=== PATIENT | male | born 1950 | race Caucasian/White ===

== ENCOUNTER 2024-05-17 17:42 | Inpatient (IN) | payer MEDICARE, SELFPAY ==
[2024-05-17] VITALS (25 sets, daily range): BP systolic 61–162; BP diastolic 41–88; PULSE 82–112; RESP 12–27; TEMP 35.8–36.6; O2SAT 91–99; BMI 29.8; BMI 33.5
--- NOTE | 2024-05-17 | IR_ITS ---
APPROVED REPORT Patient Location: [facility] Sales Representative: Yosi Oliva, RT (R) PROCEDURES Left heart catheterization Left ventriculogram Selective coronary angiogram Drug-eluting stent deployment to the proximal circumflex artery Drug-eluting stent deployment to the mid LAD Attempted angioplasty of a chronically occluded right coronary INDICATION Cardiogenic shock, Sudden cardiac , Anterior ST elevation myocardial infarction Informed consent was obtained prior to the procedure. COMPLICATIONS NONE Estimated Blood Loss: LESS THAN 10 ML TECHNIQUE One percent lidocaine was used to anesthetize the right groin. The right femoral artery was accessed via the Seldinger technique. A 6-Slovenian sheath was placed in the right femoral artery. A 6 Slovenian JL 4 guide catheter was used to perform left coronary artery angiography. Therapeutic heparin was administered giving a therapeutic ACT and a Choice PT extra-support wire was placed into the circumflex artery followed by a 3 mm x 22 mm Warren frontier stent deployed at 18 dhiraj reducing the critical stenosis to 0%. SOLANGE-3 flow was present before and after the procedure. An additional Choice PT extra-support wire was attempted to open would look like an occluded first obtuse marginal artery however this appeared to be a chronic occlusion. The Choice PT was placed down to the mid LAD and a 3 mm x 15 mm Stamps frontier stent was deployed at 20 dhiraj in the mid LAD reducing the severe stenosis to 0%. 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 Eventually the multipurpose catheter was placed into the right coronary artery followed by Choice PT extra-support wire. The lesion appeared to be chronically occluded. A 2 mm x 15 mm compliant balloon was advanced which would not allow passage of the wire or the balloon. At this point it was decided this was a chronic occlusion given it was collateralized through a rich collateral system through the LAD system. The catheter was used to perform left heart catheterization and left ventriculogram. At the end of the procedure the femoral sheath was sewn into place patient was transferred to the postop putting in stable condition ANGIOGRAPHIC RESULTS The left main artery Normal The left anterior descending artery Proximal 10 to 20% stenosis with a mid vessel 70% stenosis The circumflex artery Large nondominant and appears as though the first obtuse marginal artery is chronically occluded. Distal to the first obtuse marginal artery there is a concentric greater than 90% stenosis which supplies 2 large distal obtuse marginal arteries The right coronary artery Proximally occluded and fills distally via the septal perforators The LUKE ventriculogram reveals Dilated ventricle anterior wall hypokinesis inferior wall severe hypokinesis estimate ejection fraction 35% The left ventricular end-diastolic pressure 20 to 25 mmHg IMPRESSION Sudden cardiac followed by cardiogenic shock status post cardiopulmonary arrest presenting to the Loader Technician Successful stenting of a critically diseased large proximal to mid circumflex artery critical disease reduced to 0% with 1 drug-eluting stent Successful stenting of a severely diseased mid LAD which supplied collaterals to a chronically occluded right coronary severe disease reduced to 0% with 1 drug-eluting stent Attempted angioplasty of a chronically occluded right coronary artery Reduced ejection fraction with regional wall motion abnormality Hypokalemia potassium 2.3 PLAN 1. Plavix 600 mg per rectum followed by 75 mg per NG tube daily 2. Place NG tube 3. Supportive care 4. Torch Operator consultation 5. Continue on heparin drip as long as right femoral sheath remains in place. We will use the femoral sheath for continuous arterial pressure and for periodic blood gases 6. Once patient is more hemodynamically stable and off the epinephrine drip we will place Perclose device and remove the femoral sheath 7. Replete potassium. Patient experienced sudden cardiac in the setting of hypokalemia. 8. Official echocardiogram Sunday 9. Unless patient awakens and starts moving around I would prefer not to use sedation and see if he is neurologically intact. 10. Wean epinephrine drip to keep map above 75 11. Pharmacy to adjust heparin drip 12. Check INR 13. Obtain home medications Electronically signed by : Surjit Gomez MD 05/17/2024 19:45:39
--- NOTE | 2024-05-17 18:00 | ECG_ITS ---
APPROVED REPORT Exam: Resting ECG HR:79 bpm ECG Measurements Heart Rate 79 AXES QRSd 92 QRS 125 QT 412 T -41 QTc 447 Conclusion ATRIAL FIBRILLATION MARKED ST DEPRESSION, CONSIDER SUBENDOCARDIAL INJURY [0.2+ mV ST DEPRESSION] Shark fin in the septal leads, ST depression in multiple leads with upright T wave. QTc 447. Electronically signed by : EBONY MEDLEY, 05/17/2024 23:40:16
--- NOTE | 2024-05-17 18:30 | PC.NURSE ---
pt to micro lab analyst with stephany mcclure and dean andrews
--- NOTE | 2024-05-17 18:31 | ED_ITS ---
Discharge Plan Referrals Follow up/Referrals: Provider,Referral, [Primary Care Provider] - See instructions Clinical Impressions Clinical Impression: Cardiac arrest with ventricular fibrillation Print Language Print Language: Haitian Discharge ED Provider: Srinath Alaniz General Adult HPI General Stated complaint: CARDIAC ARRREST Time Seen by Provider: 05/17/24 17:42 History of Present Illness HPI narrative: Patient is a 73-year-old male with largely unknown past medical history presents emergency department in cardiac arrest. History is largely obtained by EMS. Patient was standing his front door when he collapsed, he had no complaints prior to collapsing. Immediate bystander CPR. Fingerstick in the field nonactionable. Definitive airway placed in the field. IV access placed in the field. Prior to arrival patient had 5 shocks for V-fib arrest, 300 mg of amiodarone, and amp of bicarb, 6 mg of epinephrine. ROSC was obtained in the ambulance bay prior to coming in with José in place with compressions paused. Related Data Allergies Allergy/AdvReac Type Severity Reaction Status Date / Time Unable to Assess Allergy Verified 05/17/24 18:27 [facility] Disclaimer: The information contained in this section may have been updated after the patient was seen, as this information can be updated by other users. Social History Smoking Status: Current every day smoker alcohol intake: former year quit: Unkn current occupational status: other Travel in the last 8 weeks: None ROS Obtained: Yes unobtainable due to mental status Physical Exam General General appearance: other (Coding in extremis) Head Head exam: atraumatic and normocephalic ENT ENT exam: Present mucous membranes moist Neck Neck exam: Present normal inspection Chest Chest inspection: Present symmetric chest wall rise and other (José in place) Respiratory Respiratory exam: Present other (Bilateral breath sounds bag present) Cardiovascular Cardiovascular exam: Present other (No palpable pulse) Abdominal Exam Abdominal exam: Present soft Extremities Exam Extremities exam: Present normal inspection Neurological Exam Neurological exam: Present other (GCS 3 T) Medical Decision Making Medical Records Screening: Per USPSTF and CDC recommendations, given the prevalence of disease in our region, it is our hospital?s policy to screen for HIV and viral Hepatitis for all patients aged 18 and over and those with ongoing risk factors. Star Inquiry Pt receiving controlled substance: No Orders (Tests/Meds): ED MEDICATIONS Generic Name Dose Route Start Last Admin Trade Name Freq PRN Reason Stop Dose Admin Diphenhydramine HCl 50 mg 05/17/24 18:27 Diphenhydramine 50mg/Ml Vial IV 05/17/24 18:28 ONCE ONE Fentanyl Citrate 50 mcg 05/17/24 18:27 Fentanyl 100mcg/2ml Vial IV 05/18/24 06:27 Q3MINP PRN Sedation Fentanyl Citrate 25 mcg 05/17/24 18:27 Fentanyl 100mcg/2ml Vial IV 05/18/24 06:27 Q3MINP PRN Sedation Flumazenil 0.2 mg 05/17/24 18:27 Flumazenil 0.1mg/Ml 5ml Vial IV 05/18/24 06:27 NEEDED PRN Sedation Heparin Sodium (Porcine) 10,000 unit 05/17/24 18:27 Heparin 1,000 Units/Ml 10ml Vial (Adjunct Trainer) IV 05/17/24 22:27 NEEDED PRN Emergency Box Carbon Blocks Press Operator Heparin Sodium/Sodium Chloride 3,000 unit 05/17/24 18:27 Heparin 1,000 Units/500ml Ns (Adjunct Trainer) IV 05/17/24 18:28 ONCE ONE Hydralazine HCl 20 mg 05/17/24 18:27 Hydralazine 20mg/Ml Vial IV 05/17/24 22:27 ONCE PRN sbp>160 Adenosine 180 mg/ Sodium 90 mls @ 0 mls/hr 05/17/24 18:27 Chloride IV 05/17/24 22:27 ONCE PRN fractional flow reserve 180 MCG/KG/MIN Adenosine 90 mg/ Sodium 90 mls @ 0 mls/hr 05/17/24 18:27 Chloride IV 05/17/24 22:27 ONCE PRN fractional flow reserve 180 MCG/KG/MIN Sodium Chloride 1,000 mls @ 25 mls/hr 05/17/24 18:30 Sod Chloride 0.9% 500ml Bag IV 05/18/24 18:27 .Q25H BRIDGET Labetalol HCl 20 mg 05/17/24 18:27 Labetalol 20mg/4ml Syringe IV 05/17/24 22:27 ONCE PRN sbp>160 Lidocaine HCl 20 ml 05/17/24 18:27 Lidocaine 1% 10ml Mdv IJ 05/17/24 18:28 ONCE ONE Lidocaine HCl 20 ml 05/17/24 18:27 Lidocaine 1% 5ml Pf Vial IJ 05/17/24 18:28 ONCE ONE Midazolam HCl 1 mg 05/17/24 18:27 Midazolam 2mg/2ml Vial IV 05/18/24 06:27 Q3MINP PRN Sedation Midazolam HCl 1 mg 05/17/24 18:27 Midazolam Hcl 1mg/Ml 5ml Vial IV 05/18/24 06:27 Q3MINP PRN Sedation Naloxone HCl 0.4 mg 05/17/24 18:27 Naloxone 0.4mg/Ml Vial IV 05/18/24 06:27 Q5MINP PRN Decreased Respirations Nitroglycerin 800 mcg 05/17/24 18:27 Nitroglycerin 800mcg/8ml Syr (Adjunct Trainer) IA 05/17/24 22:27 NEEDED PRN Emergency Box Carbon Blocks Press Operator Protamine Sulfate 50 mg 05/17/24 18:27 Protamine Sulfate 50mg/5ml Vial (Adjunct Trainer) IV 05/17/24 22:27 ONCE PRN act>200 Verapamil HCl 2.5 mg 05/17/24 18:27 Verapamil 2.5mg/Ml 2ml Vial IV 05/17/24 18:28 ONCE ONE ORDERS Category Date Time Status Basic Metabolic Panel Stat Lab 05/17/24 18:27 Ordered Complete Blood Count Auto Diff Stat Lab 05/17/24 18:27 Ordered ECG Data Tracing #1: Independently interpreted by me rate is 79, rhythm is irregular, indeterminate axis, shark fin in the septal lead, ST depression with an upright T wave in the anterior leads. QTc 447 Medical Decision Narrative: In summary patient is 73-year-old male who presents emergency department with V- fib arrest status post prolonged ACLS approximately 45 minutes with bystander CPR and no downtime prior to bystander CPR. Return spontaneous circulation achieved in the ambulance bay. Patient was wheeled in on the gurney and subsequently lost pulses. ACLS resumed. Definitive airway in place with bilateral bagged breath sounds present. José compressions were continued. Ultimately patient underwent multiple rounds of ACLS, additional shock delivered for V-fib arrest. Patient was given epinephrine, lidocaine, calcium chloride, bicarb and ultimately after multiple rounds of ACLS return to spontaneous circulation achieved. Right femoral arterial line placed. Bagging is continued. EKG at bedside shows shark fin in the septal lead, wide-complex irregular rhythm, no overt ST elevation in anatomical contiguous leads. The case was discussed with Dr. Gomez and we will proceed to Adjunct Trainer emergently at this time. Acceptable mean arterial pressures on epinephrine drip at time of transfer of care to the Adjunct Trainer. I discussed case with Dr. Hahn and checked out to him for ongoing care and evaluation after the Adjunct Trainer. Patient admitted in critical condition. After admission hematologic labs reviewed by me potassium is 2.[address] Gomez and he will administer potassium in the Adjunct Trainer at this time Procedure: Procedure performed was right femoral arterial line. Procedure performed by Srinath Alaniz. ChloraPrep used over the right femoral area. Needle over wire technique advanced right femoral arterial line. Waveform present. Sutured in place and dressed in place. Number of attempts was 1. No immediate complications related to arterial line. Critical Care Critical Care Time Critical Care Time: Yes Attestation: On 05/17/24, the high probability of a clinically significant, sudden or life threatening deterioration of the following system(s) required my full and direct attention, intervention and personal management. The time I documented below is in addition to time spent performing reported procedures but includes the following listed in this critical care notation. Total Time Total Critical Care Time: 45
[2024-05-17 18:32] LABS: Basophils # 0.1 K/mm3 (0-0.2); Basophils % 0.5 % (0.1-2.0); Eosinophils # 0.3 K/mm3 (0.0-0.4); Eosinophils % 1.7 % (0.1-12.0); Hematocrit 42.1 % (42.0-52.0); Lymphocytes # 4.5 K/mm3 (0.7-4.5); Mean Corpuscular HGB Conc 30.9 g/dL (31.8-35.4); Mean Corpuscular Hemoglobin 30.3 pg (27.0-31.2); Mean Corpuscular Volume 98.1 fl (80-94); Mean Platelet Volume 10.7 fl (7.4-10.4); Monocytes # 0.5 K/mm3 (0.1-1.0); Monocytes % 3.1 % (1.7-9.3); Neutrophils # 8.9 K/mm3 (1.8-7.8); Neutrophils % 59.9 % (37.0-80.0); Platelet Count 149 K/mm3 (142-424); Red Blood Count 4.29 M/mm3 (4.60-6.20); Red Cell Distribution Width 14.5 % (11.5-17.5); White Blood Count 14.9 K/mm3 (4.8-10.8)
[2024-05-17 18:33] LABS: Anion Gap 15.3 mEq/L (5-15); Blood Urea Nitrogen 16 mg/dl (9-20); Calcium 7.5 mg/dl (8.4-10.2); Carbon Dioxide 26 mmol/L (22.0-30.0); Chloride 102 mmol/L (98-107); Estimated Glomerular Filt Rate 42 ml/min (>60); GFR (African American) 51 ML/MIN (>60); Glucose 242 mg/dl (74-100); Sodium 141 mmol/L (136-145)
[2024-05-17 18:35] LABS: Potassium 2.3 mmoL/L (3.5-5.1)
--- NOTE | 2024-05-17 18:37 | PC.NURSE ---
Addendum entered by Jamie Narvaez RN 05/17/24 19:00: 1759 norepi gtt stopped. 1810 epi gtt started at 2 mcg/min Original Note: 1738- arrived via ems. tube 24 at teeth 7.5 per ems: 15 mins down with family doing cpr. vfib shock x5 5 epis with 1L fluid amio 300 1 amp bicarb 174: no pulse- cpr per luis and epi in 1744: 150 amio 1744- vfib, shock at 120j 1745- 100mg lidocaine 174- no pulse PEA cardiac activity on US 1747-EPI in 1747- pea no pulse 1752- ROSC, wide complex rhythm 1754-luis removed 175-obtaining EKG 175-norepi started 8mcg/min 1800-ekg obtained 1801-aniya on the phone with bruce 1804- lab asst team paged 1805-1 amp bicarb first attempt at rt side femoral stick (successful at 1808) 1807-ns fluids hung 1810- 1g ca chloride 1811-2 mcg/min epi gtt started 1812-1 amp bicarb 1820- temp sensing 16f benítez placed 1830- off to lab asst
[2024-05-17 18:46] LABS: Alanine Aminotransferase 34 U/L (12-78); Albumin Level 3.1 g/dl (3.5-5.0); Albumin/Globulin Ratio 1.1 (1.1-1.8); Alkaline Phosphatase 95 U/L (38-126); Anion Gap 16.3 mEq/L (5-15); Aspartate Amino Transferase 73 U/L (17-59); Bilirubin,Total 0.4 mg/dl (0.2-1.3); Blood Urea Nitrogen 18 mg/dl (9-20); Calcium 7.5 mg/dl (8.4-10.2); Carbon Dioxide 25 mmol/L (22.0-30.0); Chloride 103 mmol/L (98-107); Estimated Glomerular Filt Rate 42 ml/min (>60); GFR (African American) 51 ML/MIN (>60); Globulin 2.7 g/dL (1.3-3.2); Glucose 242 mg/dl (74-100); Magnesium 2.1 mg/dl (1.6-2.3); Sodium 142 mmol/L (136-145); Total Protein,Serum 5.8 g/dl (6.3-8.2)
[2024-05-17] MEDS: HEPARIN 1,000 UNITS/ML 10ML VIAL (CATH LAB) 10000 UNIT IV (18:53)
[2024-05-17] MEDS: LIDOCAINE 1% 10ML MDV 20 ML IJ (18:53)
[2024-05-17] MEDS: HEPARIN 1,000 UNITS/500ML NS (CATH LAB) 3000 UNIT IV (18:54)
[2024-05-17] MEDS: 0.9 % SODIUM CHLORIDE 500 ML 25 ML IV (18:54)
--- NOTE | 2024-05-17 19:02 | P.HP_ITS ---
<Statement entered by Geovanni Hahn MD - 05/20/24 12:45> I personally evaluated patient and agree with plan of care outlined by the DIRECTOR OF LAND ACQUISITION. History of Present Illness *Admission Date: 05/17/24 *Reason for visit:: Cardiac arrest *History of present illness: This is a 73-year-old male who has a past medical history of atrial fibrillation, hypertension, and diabetes who presents to the emergency room ventricular fibrillation with ACS protocol and in progress. Patient was seen and evaluated while in the Clerical Production Worker; as result, his review of systems is limited. Cording ER provider, patient had a witnessed arrest. CPR was performed in the outpatient setting. Patient was transition to emergency room with CPR in progress and he had multiple episodes of ACLS protocol. ROSC was achieved and patient was taken to the Clerical Production Worker. Attending physician I spoke with patient's family. Family member states that patient walked to the mailbox and when he came back he asked someone to help him or grab him. However grabbed patient and he went down. He states that he did have a rise and fall of his chest for some time then he started to have some cyanosis of his face. CPR was initiated by the family member and they placed nasal cannula on him. They voiced that he did not receive any breaths only chest compressions. Family were states the patient has been having lightheadedness with exertion that would resolve once he would rest. They state patient blood pressure was under control and his diabetes was under control. They report he has never had a NH or CVA in the past. [facility] Disclaimer: The information contained in this section may have been updated after the patient was seen, as this information can be updated by other users. Social History Smoking Status: Current every day smoker alcohol intake: former year quit: Unkn current occupational status: other Travel in the last 8 weeks: None Review of Systems Review of Systems Review of systems:: unable to obtain Meds Home Medications and Allergies New Prescriptions to Start Prescriptions: Allergies Allergy/AdvReac Type Severity Reaction Status Date / Time Unable to Assess Allergy Verified 05/17/24 18:27 Exam Data for Last 24 hours Vital signs and Labs for Last 24 Hours: Laboratory Results - last 24 hr 05/17/24 17:45: WBC 14.9 H, RBC 4.29 L, Hgb 13.0 L, Hct 42.1, MCV 98.1 H, MCH 30.3, MCHC 30.9 L, RDW 14.5, Plt Count 149, MPV 10.7 H, Neut % (Auto) 59.9, Lymph % (Auto) 30.0, Ellis % (Auto) 3.1, Eos % (Auto) 1.7, Baso % (Auto) 0.5, Neut # (Auto) 8.9 H, Lymph # (Auto) 4.5, Ellis # (Auto) 0.5, Eos # (Auto) 0.3, Baso # (Auto) 0.1, Sodium 141, Potassium 2.3 L*, Chloride 102, Carbon Dioxide 26, Anion Gap 15.3 H, BUN 16, Creatinine 1.60 H, Estimated GFR 42 L, Est GFR ( Amer) 51 L, Glucose 242 H, Calcium 7.5 L I & O for Last 24 hours: Intake & Output 05/14/24 05/15/24 05/16/24 05/17/24 23:59 23:59 23:59 23:59 Weight 99.79 kg Constitutional Comments: Mechanically ventilated *Routine HEENT Exam Head: Present normocephalic and other Eye: Present other ENT: Present other *Routine Respiratory Exam Respiratory: Present other Comments: Unable to assess at this time *Routine Cardiovascular Exam Cardiovascular: Present RRR, Normal S1, Normal S2 and other Comments: Unable to assess at this time *Routine Abdominal Exam Abdominal: Present soft, normoactive bowel sounds and other Comments: Unable to assess at this time *Routine Rectal Exam Rectal:: deferred *Routine Genitalia Exam Genitalia:: deferred *Routine Extremities Exam Comments: Unable to assess *Routine Neurological Exam Comments: On ventilator H&P: Result Impressions 73-year-old male presents with witnessed arrest status post multiple rounds of ACLS protocol achieving ROSC. Patient transition to Clerical Production Worker for diagnostic cath. Patient remains critical and guarded Assessment and Plan *Assessment and plan (1) Cardiac arrest with ventricular fibrillation: Status: Acute Category: Medical Code(s): I46.9 - Cardiac arrest, cause unspecified; I49.01 - Ventricular fibrillation Plan Assessment Cardiac arrest with ventricular fibrillation -Patient straight to the Clerical Production Worker -Will likely patient will require antiarrhythmic -Attending and I spoke with tip banding machine operator precath Plan: Admit patient to the intensive care unit post PCI Give supportive care per family Will reevaluate patient once out of the Clerical Production Worker Update Spoke with digital commentator patient did receive stents at the LAD and the circumflex RCA was 100% occluded with collateralization Bed rest Cardiac monitoring SCDs bilateral lower extremity NG tube N.p.o. Daily chest x-ray Daily CBC/BMP Chaidez catheter Mechanical ventilation settings tidal volume 400, rate of 14, PEEP of 5 Normal saline at 75 mL an hour Will use Versed for sedation Will monitor for seizure activity Concerns for anoxic injury Total critical care time 40 minutes I have discussed this case with attending physician Dr. Hahn and I look forward to more input,
[2024-05-17 19:03] LABS: Creatinine Clearance Estimated 57 mL/min (50-200); INR 1.28 (0.9-1.1); Prothrombin Time 13.7 seconds (10.1-12.5)
[2024-05-17 19:04] LABS: Potassium 2.3 mmoL/L (3.5-5.1); Troponin I 0.45 ng/ml (0.00-0.034)
[2024-05-17] MEDS: KCl 10mEq/100ml 100 ML 100 MEQ IV ×5 (19:16→23:45)
[2024-05-17] MEDS: IOPAMIDOL-370 (76%);100ML BOTTLE 210 ML IV (19:38)
[2024-05-17 19:42] LABS: CATHL Activated Clotting Time > 400 SEC (74-125)
[2024-05-17] MEDS: ASPIRIN 300MG SUPPOSITORY 300 MG RC (20:06)
[2024-05-17] MEDS: CLOPIDOGREL 300MG TABLET 600 MG RC (20:06)
[2024-05-17] MEDS: HEPARIN SODIUM,PORCINE/D5W 500 ML 16 UNIT IV (20:09)
[2024-05-17] MEDS: EPINEPHrine 5 MG in 0.9 % SODIUM CHLORIDE 250 ML 6.12 MG IV (20:10)
--- NOTE | 2024-05-17 20:15 | SUR.PHASEII ---
Family at bedside
--- NOTE | 2024-05-17 21:20 | PC.NURSE ---
Pt arrived to ICU unit from laboratory technologist via stretcher @20:45
[2024-05-17 21:25] LABS: POC Glucose,Bedside 180 (70-110)
[2024-05-17] MEDS: 0.9 % SODIUM CHLORIDE 1000ML 1,000 ML 75 ML IV (21:33)
--- NOTE | 2024-05-17 21:33 | EXP.EVENT.NO ---
Spoke with [facility]y and they recommend giving patient a loading dose of Keppra of 1 g. If patient still having myoclonus given additional gram and then give twice daily. They recommend CT scan of the head, EEG, and MRI (MRI to perform within 48 to 72 hours). If patient continues to have myoclonic, I recommend transferring to for continuous EEG monitoring. Will update attending physician
[2024-05-17] MEDS: levETIRAcetam 1,000 MG in 0.9 % SODIUM CHLORIDE 100 ML 220 MG IV ×2 (21:34→22:41)
[2024-05-17 21:35] LABS: ABG Base Excess -1.5 mmol/L (-2.4-2.3); ABG HCO3 23.9 mmhg (22.0-26.0); ABG Oxygen Saturation 100 % (90-100); ABG PCO2 42.5 mmhg (35.0-45.0); ABG PH 7.37 mmol/L (7.35-7.45); ABG TCO2 25.2 mmhg (23-27); Allen's Test Patient Unable; Oxygen 100% %; Source ART LINE
[2024-05-17 21:49] LABS: PTT Heparin (inpatient only) > 139.0 Seconds (50-75)
[2024-05-17 21:53] LABS: ABG Base Excess -8.2 mmol/L (-2.4-2.3); ABG HCO3 18.8 mmhg (22.0-26.0); ABG Oxygen Saturation 100 % (90-100); ABG PCO2 42.5 mmhg (35.0-45.0); ABG PH 7.26 mmol/L (7.35-7.45); ABG PO2 422.3 mmhg (80-100); ABG TCO2 20.1 mmhg (23-27); Oxygen 100 %; PEEP 5; Tidal Volume 420; Vent Rate 18
[2024-05-17 21:54] LABS: Allen's Test Patient Unable; Source A-LINE
--- NOTE | 2024-05-17 22:52 | PC.NURSE ---
Spoke with Trixie at [facility] pharmacy for critical lab result. Orders to maintain current dose at 16ml/hr, and redraw bloodwork at 0300.
[2024-05-18] VITALS (26 sets, daily range): BP systolic 64–234; BP diastolic 38–132; PULSE 0–116; RESP 0–56; TEMP 36.7–37.9; O2SAT 70–100
[2024-05-18] MEDS: LORazepam 2MG/ML VIAL 2 MG IV (00:20)
--- NOTE | 2024-05-18 00:39 | PC.NURSE ---
CODE #1 Patient observed to go into Vtach approx 0039. 0040 Rapid response called. Provider at bedside. Pulseless Vtach rhythm noted. Compressions started. Patient shocked at 200J. Jono sullivan called overhead. Vfib rhythm noted after shock. compressions resumed. 0042 Pulse check. Patient in VFIB. 200J defib administered. VFIB rhythm noted. Compressions continued. 0045 Epi administered. Epi gtt resumed at this time. 0047 Pulse check. Afib noted on monitor. 0052 Amio bolus administered. see JUN 55 Patient noted to in VTACH rhythm on monitor. Patient shocked with 200J. Rhythm noted to be AFIb after shock. 0110 Amio gtt started after initial bolus. See JUN. Patient remains on Zoll, crash cart at bedside. 0115 Family notified by fun house operator on patient condition. CODE #2 0228 Patient observed to be in VTach on nuclear monitoring technician. Jono sullivan called. No pulse noted. Compressions started. 0228 Provider at bedside. Patient shocked at 200J. 0229 Epi administered. 0231 Pulse check. AFib rhythm noted. 0248 Family members at bedside. Family speaking with BELKIS Strong and IQRA Styles on next steps of patient plan of care. Family decides to make patient DNR/DNI, and to terminally extubate. 0300 BELKIS Strong on phone with Meseret coronel [facility] at this time. Awaiting further instruction and call back after patient information provided. 0346 Belkis Strong speaking with DEVIKA Carl who relays that patient is not a candidate for organ donation, and that staff can proceed with terminal extubation. CASE # [id number]. Instructed by Meseret to call back with cardiac TOD. 0350 Respiratory notified, Provider notified to proceed with terminal extubation. 0402 Respiratory at bedside, and ETT removed, gtts turned off, monitor placed in privacy mode. 0405 Family at bedside. Grieving appropriately.
[2024-05-18] MEDS: EPINEPHrine 0.1 MG/ML 10ML SYRINGE (CRASH CART) 1 MG IV (00:45)
--- NOTE | 2024-05-18 00:51 | EXP.EVENT.NO ---
Called by nursing staff to present to come to patient's bedside. When I arrived CPR was in progress. Nursing staff states that patient went to V. tach and when we did a rhythm analysis patient was in ventricular fibrillation. Gave 1 shock of 200 J continue CPR and ROSC was achieved after given 1 amp of epinephrine. Spoke with account planner on-call who recommended amiodarone drip with 150 mg bolus. Son is en route will have discussion with son concerning CODE STATUS. Will update attending physician
[2024-05-18] MEDS: AMIODARONE HCL 150 MG in DEXTROSE 5 % IN WATER 100 ML 618 MG IV (00:52)
[2024-05-18] MEDS: AMIODARONE HCL 900 MG in DEXTROSE 5 % IN WATER 500 ML 34.53 MG IV (01:10)
--- NOTE | 2024-05-18 02:46 | EXP.EVENT.NO ---
Unfortunately, patient had another episode of ventricular tachycardia without a pulse. Shocked at 200 J and patient converted to sinus rhythm with PVCs. ROSC was achieved. Had a long discussion with family member concerning patient's potential for survival. After discussion, family decided to withdraw care. Will update attending physician and on-call cardiology
[2024-05-18] MEDS: MORPHINE 4MG/ML SYRINGE 4 MG IV (05:01)
--- NOTE | 2024-05-18 06:31 | PC.NURSE ---
Patient TOD 0645
--- NOTE | 2024-05-18 06:32 | PC.NURSE ---
Family and DEVIKA informed of patient passing.
--- NOTE | 2024-05-18 06:33 | EXP.DEATH.NO ---
Pronouncement Note Date and Time of Date of : 05/18/24 Time of : 06:31 PCOD Preliminary cause of : Cardiac arrest Contributing Factors (1) Cardiac arrest with ventricular fibrillation: Contributing factors: Severe coronary artery stenosis Additional Data Confirmation of : no pulse, no respirations, no heart sounds and pupils fixed and dilated Family: contacted Attending/PCP notified?: Yes Attending physician: Geovanni Hahn MD Was code activated?: No Autopsy should be considered if:: Unknown or unanticipated medical complications Cause is not known with certainty on clinical grounds Would allay concerns of the public/family regarding Unexplained/unexpected apparently natural and not subject to a forensic medical jurisdiction DOA Within 24 hours of admission Sustained or apparently sustained injury while in the hospital Result of high risk, infectious and contagious disease Obstetric and pediatric arising from environmental or occupational hazard Unexplained/unexpected from dental, medical, or surgical diagnostic procedures and/or therapies Would disclose a known or suspected illness which also may have a bearing on survivors or recipients of transplanted organs Autopsy requested?: No Does not meet criteria examiner rating clerk notified?: No Organ bank notified?: Yes Advance directives: Yes
--- NOTE | 2024-05-18 06:55 | PC.NURSE ---
BELKIS Strong speaking with DEVIKA Cross who states that they will be following for tissue and eyes. Instructions for eye care, and preservation given and performed. Passed off to daysjade Easley RN.
--- NOTE | 2024-05-18 07:52 | PC.NURSE ---
0730 - [place] at [facility] notified that corneas are prepped w/ salinea and gauze per their instructions w/ ice applied to chest, bilat axillae, and groin. 0746 - [employer], Emma Toscano at bedside. Permission to release body given. Yohannes Curiel @ [facility] made aware that body has been released.
--- NOTE | 2024-05-18 08:37 | PC.NURSE ---
0831 - Received call from Veena @ [facility], family have declined donation. 0833 - Spoke w/ Emma @ [facility] and let her know that family will be using their services. States she will give information to director.
== END 2024-05-18 09:45 | disposition expired | DRG 321 ==
LOC: ER 18:44 → CATHLAB 19:18 → ICU 19:48
PROVIDERS: Internal Medicine; Nurse Practitioner Family; Admitting Provider Student in an Organized Health Care Education/Training Program; Emergency Provider Emergency Medicine; Visit Provider Student in an Organized Health Care Education/Training Program
PROC: 027135Z Dilation of Coronary Artery, Two Arteries with Two Drug-eluting Intraluminal Devices, Percutaneous Approach (ICD-10-PCS; principal; 2024-05-17 18:30)
DX: I46.9 Cardiac arrest, cause unspecified (principal); I21.09 ST elevation (STEMI) myocardial infarction involving other coronary artery of anterior wall; I49.01 Ventricular fibrillation; F17.210 Nicotine dependence, cigarettes, uncomplicated; I48.91 Unspecified atrial fibrillation; I11.0 Hypertensive heart disease with heart failure; I77.1 Stricture of artery; I25.82 Chronic total occlusion of coronary artery; R57.0 Cardiogenic shock; I50.9 Heart failure, unspecified; E11.9 Type 2 diabetes mellitus without complications
CPT/HCPCS: 36415; 80048; 80053; 82803; 82962; 83735; 84484; 85025; 85347; 85610; 85730; 87070; 87205; 92928; 92941; 92950; 93005; 93458; 94002; 99152; 99153; 99291; C1725; C1769; C1874; C1894; C9600; C9606; J0171; J0282; J1644; J1953; J2060; J2270; J3480; J7030; J7060; Q9967